=== PATIENT | male | born 1985 | race Caucasian/White ===

== ENCOUNTER 2020-08-30 16:19 | Inpatient (IN) ==
[2020-08-30] MEDS ORDERED: Doxycycline 100 MG CAPSULE PO ONE (16:38)
[2020-08-30 17:17] LABS: Basophils % 0.3 %; Eosinophils # 0.1 K/mcL (0.0-0.6); Hematocrit 34.7 % (37.5-50.1); Hemoglobin 11.5 g/dL (12.9-16.9); Immature Granulocytes % 0.4 % (0-4); Lymphocytes # 1.9 K/mcL (0.6-4.6); Lymphocytes % 24.9 %; Mean Corpuscular HGB Conc 33.1 g/dL (31.6-35.5); Mean Corpuscular Hemoglobin 30.1 pg (28.0-33.3); Mean Corpuscular Volume 90.8 fL (83.0-100.0); Mean Platelet Volume 10.6 fL (9.4-12.4); Monocytes # 0.8 K/mcL (0.0-1.3); Monocytes % 9.7 %; Neutrophils # 4.9 K/mcL (1.6-8.9); Platelet Count 142 K/mcL (140-400); Red Blood Count 3.82 M/mcL (4.19-5.50); Red Cell Distribution Width 13.2 % (11.5-14.5); Segmented Neutrophils % 63.7 %; White Blood Count 7.7 K/mcL (4.3-11.1)
[2020-08-30 17:37] LABS: Acetaminophen < 10 mcg/mL (10-20); BUN/Creatinine Ratio 15 (6-26); Blood Urea Nitrogen 13 mg/dL (6-20); Calcium 8.6 mg/dL (8.6-10.3); Carbon Dioxide 25 mEq/L (23-29); Chloride 101 mEq/L (98-107); Chol/HDL Ratio 3.3 (0-4.9); Cholesterol 89 mg/dL (< 200); Ethanol < 10 mg/dL (Less than 10); Glucose 105 mg/dL (70-105); HDL Cholesterol 27 mg/dL (40-59); LDL Cholesterol,Calculated 47 mg/dL (< 100); Osmolality,Calculated 282 (280-300); Potassium 3.2 mEq/L (3.5-5.1); Salicylate < 2.5 mg/dL (15.0-30.0); Sodium 136 mEq/L (136-145); Triglycerides 76 mg/dL (< 150); eGFR For African Americans > 60 (> 60); eGFR For Non-African Americans > 60 (> 60)
[2020-08-30 17:47] LABS: Bacteria,Urine Few per hpf (None-Few); Bilirubin,Urine Small (Negative); Blood,Urine Negative (Negative); Clarity,Urine Clear (Clear); Color,Urine Yellow (Yellow); Glucose,Urine (UA) Normal (Normal); Hyaline Casts,Urine Few per lpf (None Seen); Ketones,Urine Trace mg/dL (Negative); Leukocyte Esterase,Urine Negative (Negative); Mucus,Urine Few per lpf (None-Few); Nitrite,Urine Negative (Negative); Protein,Urine 30 mg/dL (Neg-Trace); RBC,Urine 0-3 per hpf (0-3); Urobilinogen,Urine >=8.0 mg/dL (Normal); WBC,Urine 0-3 per hpf (0-3)
[2020-08-30 17:49] LABS: Reactive Lymphocytes Present (Not Present)
[2020-08-30 17:57] LABS: Amphetamine Screen,Urine Negative ng/mL (Cutoff=1000); Barbiturate Screen,Urine Negative ng/mL (Cutoff=200); Benzodiazepines Screen,Urine Negative ng/mL (Cutoff=200); Cannabinoid Screen,Urine Negative ng/mL (Cutoff = 50); Cocaine Screen,Urine Negative ng/mL (Cutoff= 300); Opiate Screen,Urine Negative ng/mL (Cutoff=300); Phencyclidine Screen,Urine Negative ng/mL (Cutoff=25)
[2020-08-30] MEDS ORDERED: Tdap (Boostrix) Vaccine 0.5 ML SYRINGE IM ONE (18:06)
[2020-08-30] MEDS ORDERED: Ibuprofen 400 MG TABLET PO ONE (19:15)
[2020-08-30 20:46] LABS: Influenza A PCR Negative (Negative); Influenza B PCR Negative (Negative); Resp. Syncytial Virus PCR Negative (Negative)
[2020-08-30 20:47] LABS: SARS-CoV-2 by PCR (In House) Negative (Negative)
[2020-08-30] MEDS ORDERED: *HR* LORazepam 2 MG/ML VIAL IM PRN (21:20)
[2020-08-30] MEDS ORDERED: Ibuprofen 400 MG TABLET PO PRN (21:20)
[2020-08-30] MEDS ORDERED: *HR* LORazepam 1 MG TABLET PO PRN (21:20)
[2020-08-30] MEDS ORDERED: haloperidoL 5 MG TABLET PO PRN (21:20)
[2020-08-30] MEDS ORDERED: hydrOXYzine pamoate 25 MG CAPSULE PO PRN (21:20)
[2020-08-30] MEDS ORDERED: Haloperidol Lactate 5 MG/ML VIAL IM PRN (21:20)
[2020-08-30] MEDS ORDERED: traZODone 50 MG TABLET PO PRN (21:20)
[2020-08-31] MEDS ORDERED: MOM Conc 10 ML UD.LIQ PO PRN (17:49)
[2020-08-31] MEDS ORDERED: Mag Hydrox/Al Hydrox/Simeth 30 ML UDC PO PRN (17:49)
[2020-09-01 09:25] VITALS: BP 97/58
[2020-09-01 12:42] LABS: Estimated Average Glucose 114 mg/dl; Hemoglobin A1C 5.6 %
== END 2020-09-01 12:20 | disposition home or self-care (01) | DRG 751 ==
LOC: EMEROOARM 16:19 → 1ANU 21:12
PROVIDERS: ADMIT Psychiatry & Neurology Psychiatry; ATTEND Psychiatry & Neurology Psychiatry